=== PATIENT | male | born 1990 | race Caucasian/White ===

== ENCOUNTER 2016-10-09 21:26 | Emergency (ER) | payer OTHER ==
[~2016-10-09] VITALS: Ht 180.3 cm; Wt 94.0 kg
[~2016-10-09 21:26] MED LIST: DOXY100T PO; Z.0.NO CURRENT MEDS
[2016-10-09 21:28] VITALS: BP 130/70; PULSE 63; RESP 16; TEMP 98.3; O2SAT 96
[2016-10-09] MEDS ORDERED: HYDR50TA94 PO (22:25)
[2016-10-09] MEDS ORDERED: LAMI250T PO (22:25)
--- NOTE | 2016-10-09 22:26 | PD ---
HPI . Ringworm Chief Complaint: Skin Problem Time Seen by Provider: 22:17 Travel History International Travel<30 days: No Contact w/Intl Traveler<30days: No Traveled to known affect area: No History of Present Illness HPI Patient presents with a 2 day history of her ringworm on his forehead. He has subsequently developed some satellite lesions. He states that it is very pruritic. Symptoms have not improved with an [id number] antifungal. PFSH Past Medical History Medical History: Denies Significant Hx Diminished Hearing: No Social History Alcohol Use: No Tobacco Use: No Substance Use: No Allergies-Medications (Allergen,Severity, Reaction): Coded Allergies: No Known Allergies (Verified , 10/09/16) Reported Meds & Prescriptions Reported Meds & Active Scripts Active Doxycycline Hyclate 100 Mg Tab 100 Mg PO BID 10 Days TAKE UNTIL GONE Reported No Current Meds (Miscellaneous Medication) Misc Review of Systems Skin: Positive Rash, Positive Itching Physical Exam Narrative GENERAL: Awake and alert and in no acute distress. SKIN: Warm and dry. Patient has about a 2 cm diameter, scaly, raised lesion with central clearing on the left side of his forehead. He has multiple smaller similar lesions scattered over his body. HEAD: Atraumatic. Normocephalic. EYES: Pupils equal and round. NECK: Trachea midline. CARDIOVASCULAR: Regular rate and rhythm. RESPIRATORY: No accessory muscle use. MUSCULOSKELETAL: No obvious deformities. No edema. NEUROLOGICAL: Awake and alert. No obvious cranial nerve deficits. Motor grossly within normal limits. Normal speech. PSYCHIATRIC: Appropriate mood and affect; insight and judgment normal. Data Data Last Documented VS Vital Signs Date Time Temp Pulse Resp B/P Pulse Ox O2 Delivery O2 Flow Rate FiO2 10/09/16 21:28 98.3 63 16 130/70 96 Room Air MDM Medical Decision Making Medical Screen Exam Complete: Yes Emergency Medical Condition: Yes Differential Diagnosis The differential diagnosis of the skin rash includes but is not limited to allergic urticaria, scabies, insect bites, contact dermatitis Narrative Course Patient presents with a pruritic rash which has the typical appearance of ringworm. It has not responded to a topical antifungal. He will be discharged on Lamisil and Atarax. Diagnosis Primary Impression: Ringworm Patient Instructions: General Instructions, Tinea Capitis (DC), Tinea Corporis (DC) Med/Other Pt SpecificInfo: Prescription(s) given Scripts Hydroxyzine HCl 50 Mg Tab50 Mg PO QID PRN (itching) #30 TAB Ref 0 Prov:Shira Dunlap MD 10/09/16 Terbinafine (Lamisil)250 Mg [id number] Mg PO DAILY #14 TAB Ref 0 Prov:Shira Dunlap MD 10/09/16 Shira Dunlap MD Oct 09, 2016 22:25
== END 2016-10-09 23:08 | disposition home or self-care (01) ==
LOC: NEPD 21:26
DX: B35.9 Dermatophytosis, unspecified (principal); Z79.899 Other long term (current) drug therapy
CPT/HCPCS: 99284